=== PATIENT | female | born 1980 | race Caucasian/White ===

== ENCOUNTER 2019-12-10 15:49 | Outpatient (CLI) | payer OTHER, SELFPAY ==
--- NOTE | ~2019-12-10 | MM_ITS ---
EXAMINATION: MM screening david BI w drake HISTORY: Screening mammogram TECHNIQUE: Craniocaudal and mediolateral oblique 3-D tomosynthesis images were obtained and synthetic 2-D images were generated. CAD analysis was submitted and interpreted. COMPARISON: 09/27/2018 BREAST PARENCHYMAL COMPOSITION: FINDINGS: There is no evidence of suspicious mass, calcification, or architectural distortion to sugg est malignancy in either breast. There has been no suspicious interval change. IMPRESSION: 1. No mammographic evidence of malignancy. 2. Recommend routine screening mammography in one year. BI-RADS Category 1: Negative Reviewed, dictated and finalized at location A.
== END 2019-12-10 15:50 | disposition home or self-care (01) ==
PROVIDERS: PCP Family Medicine; Visit Provider Family Medicine
DX: Z12.31 Encounter for screening mammogram for malignant neoplasm of breast (principal)
CPT/HCPCS: 77063; 77067

== ENCOUNTER 2020-09-24 16:01 | Emergency (ER) | payer OTHER, SELFPAY ==
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
[2020-09-24 16:30] VITALS: BP 139/79; PULSE 84; RESP 18; TEMP 36.4; O2SAT 96
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
[2020-09-24] MEDS: ACETAMINOPHEN 500 MG TABLET 1000 MG PO (17:29)
[2020-09-24 18:44] VITALS: BP 128/88; PULSE 70; RESP 20; O2SAT 100
== END 2020-09-24 18:45 | disposition home or self-care (01) ==
PROVIDERS: Emergency Provider Emergency Medicine; PCP Family Medicine
DX: S39.012A Strain of muscle, fascia and tendon of lower back, initial encounter (principal); S16.1XXA Strain of muscle, fascia and tendon at neck level, initial encounter; E11.9 Type 2 diabetes mellitus without complications; Z79.84 Long term (current) use of oral hypoglycemic drugs; V49.40XA Driver injured in collision with unspecified motor vehicles in traffic accident, initial encounter
CPT/HCPCS: 72100; 72125; 99284; A9270

== ENCOUNTER 2020-11-29 14:55 | Outpatient (CLI) | payer OTHER, SELFPAY ==
--- NOTE | ~2020-11-29 | XR_ITS ---
EXAMINATION: XR chest 2V 11/29/2020 15:16 INDICATION: Encounter for general adult medical examination PROCEDURE: 2 view chest COMPARISON: No prior studies for comparison. FINDINGS: The lungs are clear. The cardiomediastinal silhouette is within normal limits. There are no pleural effusions. There is no pneumothorax suspected. IMPRESSION: 1: NO ACUTE CARDIOPULMONARY DISEASE. Reviewed, dictated and finalized at location B.
== END 2020-11-29 14:56 | disposition home or self-care (01) ==
LOC: ANHIMG 15:02
PROVIDERS: PCP Family Medicine; Visit Provider Family Medicine
DX: Z00.00 Encounter for general adult medical examination without abnormal findings (principal)
CPT/HCPCS: 71046

== ENCOUNTER 2021-02-22 17:49 | Outpatient (CLI) | payer OTHER, SELFPAY ==
--- NOTE | ~2021-02-22 | MM_ITS ---
EXAMINATION: MM screening david BI w drake HISTORY: Screening TECHNIQUE: Craniocaudal and mediolateral oblique 3-D tomosynthesis images were obtained and synthetic 2-D images were generated. CAD analysis was submitted and interpreted. COMPARISON: Comparison to multiple prior studies sequentially, with oldest reviewed study dated 09/27. BREAST PARENCHYMAL COMPOSITION: There are scattered areas of fibroglandular density. FINDINGS: There is no evidence of suspicious mass, calcification, or architectural distortion to sugg est malignancy in either breast. There has been no suspicious interval change. IMPRESSION: 1. No mammographic evidence of malignancy. 2. Recommend routine screening mammography in one year. BI-RADS Category 1: Negative Reviewed, dictated and finalized at location A.
== END 2021-02-22 17:50 | disposition home or self-care (01) ==
LOC: ANHIMG 17:50
PROVIDERS: PCP Family Medicine; Visit Provider Nurse Practitioner
DX: Z12.31 Encounter for screening mammogram for malignant neoplasm of breast (principal)
CPT/HCPCS: 77063; 77067

== ENCOUNTER 2021-04-14 12:38 | Outpatient (CLI) | payer OTHER, SELFPAY ==
--- NOTE | ~2021-04-14 | XR_ITS ---
XR shoulder RT min 2V DATE: 04/14/2021 13:12 INDICATION: Right shoulder joint pain, popping when lifting TECHNIQUE: 5 views COMPARISON: None FINDINGS: No fracture or dislocation, periosteal reaction or bone destruction or abnormal soft tissue calcification is evident. There is mild dextro scoliosis of the upper thoracic spine. IMPRESSION: No significant radiographic abnormality of the right shoulder Reviewed, dictated and finalized at location A.
== END 2021-04-14 12:39 | disposition home or self-care (01) ==
LOC: ANHIMG 12:45
DX: M25.511 Pain in right shoulder (principal)
CPT/HCPCS: 73030

== ENCOUNTER 2022-06-15 10:51 | Outpatient (CLI) | payer OTHER, SELFPAY ==
[2022-06-15 11:53] LABS: Anion Gap 6 mmol/L (8-16); Blood Urea Nitrogen 15 mg/dL (7-17); Calcium 8.7 mg/dL (8.4-10.2); Carbon Dioxide 26 mmol/L (22-30); Chloride 101 mmol/L (98-107); Estimated Glomerular Filt Rate > 60; Glucose 180 mg/dL (65-110); Potassium 4.2 mmol/L (3.4-5.0); Sodium 133 mmol/L (137-145)
== END 2022-06-15 10:52 | disposition home or self-care (01) ==
LOC: ANHSURGERY 10:52
PROVIDERS: Visit Provider Obstetrics & Gynecology Gynecology
DX: E11.9 Type 2 diabetes mellitus without complications (principal); Z01.818 Encounter for other preprocedural examination
CPT/HCPCS: 36415; 80048

== ENCOUNTER 2022-06-19 01:07 | Day surgery (SDC) | payer OTHER, SELFPAY ==
[2022-04-25 12:57] VITALS: BMI 44.4
--- NOTE | 2022-04-25 13:06 | PC.NURSE ---
Report to the Outpatient Waiting Room, entrance under the green pavilion located off [facility], at time 11:45AM on date 05/08/2022. Planned Procedure Time: 1:45PM. Time changes happen often and if your time is changed the preop area will call you the afternoon before. - You and your visitor will be asked to self-screen and do not enter if you have any COVID symptoms. - We encourage only one visitor and NO visitors under age 16 are allowed at this time. Your visitor will receive communication by the phone number that is given day of service. - The patient visitor is requested to social distance or may leave the building when not with patient due to restrictions. - A mask is required within the hospital. Patients may have clear liquids (water, carbonated beverages, clear teas, apple juice) until 3 hours prior to surgery (10:45AM) with a maximum of 20 ounces. - No food from midnight until time of surgery Take the following medications with a SIP of water the morning of surgery: N/A Medications to discontinue per physician N/A Date to take last dose N/A Please no make-up, nail yi, hairspray, perfume, deodorant, or body powder the day of surgery. No jewelry (including any body piercings) or valuables the day of surgery, leave them at home. Please take a shower or bath the night before, or the morning of, surgery with an antibacterial soap. Wear comfortable, loose fitting clothing. - Jewelry must be removed prior to entering the operating room. Rings and piercings that are not removed may be cut off. - The hospital will not accept responsibility for valuables. - Please leave all valuables, including medications, at home the day of surgery. If you are going home after surgery, a licensed electric screw driver operator must drive you home. - NO public transportation without another adult. - We recommend that an adult stay with you for 24 hours following discharge. - We also recommend that you do not drive, make important decision, drink alcoholic beverages, or take any drugs that were not prescribed by your health care provider for at least 24 hours after your discharge time. Follow any additional instructions given to you from your surgeon. If you or anyone in your household have experienced Covid symptoms in the past week, please notify your surgeon or the nurse liaison at the phone number below for possible testing. Telephone instructions given to PATIENT and asked if any additional questions and then verbalized understanding. Patient advised to call surgeon office or pre surgery nurse liaison [phone] if any additional questions.
--- NOTE | 2022-06-13 09:54 | PC.NURSE ---
Report to the Outpatient Waiting Room, entrance under the green pavilion located off [facility], at time _1245_ on date _06/19/22. Planned Procedure Time: __1445_. Time changes happen often and if your time is changed the preop area will call you the afternoon before. - You and your visitor will be asked to self-screen and do not enter if you have any COVID symptoms. - Only one visitor is requested with a max of two and NO children visitors are allowed at this time. - The patient visitor may be requested to leave or wait in car when not with patient due to distancing restrictions. - A mask is optional within the hospital. Patients may have clear liquids (water, carbonated beverages, clear teas, apple juice) until 3 hours prior to surgery with a maximum of 20 ounces. - No food from midnight until time of surgery - Infants may have breast milk until 4 hours before surgery, formula 6 hours prior to surgery. - Children will be allowed to drink immediately following surgery. If applicable, please bring a bottle or sippy cup to assist with drinking. Juice, water, soda, and popsicles are readily available. For infants on formula, please bring formula the day of surgery. Pacifiers are allowed. Take the following medications with a SIP of water the morning of surgery: ___NONE Medications to discontinue per physician NONE Date to take last dose Please no make-up, nail dominican, hairspray, perfume, deodorant, or body powder the day of surgery. No jewelry (including any body piercings) or valuables the day of surgery, leave them at home. Please take a shower or bath the night before, or the morning of, surgery with an antibacterial soap. Wear comfortable, loose fitting clothing. Children are encouraged to wear pajamas. - Jewelry must be removed prior to entering the operating room. Rings and piercings that are not removed may be cut off. - The hospital will not accept responsibility for valuables. - Please leave all valuables, including medications, at home the day of surgery. If you are going home after surgery, a licensed electric pile driver operator must drive you home. - NO public transportation without another adult if you receive anesthesia. - We recommend that an adult stay with you for 24 hours following discharge. - We also recommend that you do not drive, make important decision, drink alcoholic beverages, or take any drugs that were not prescribed by your health care provider for at least 24 hours after your discharge time. For Pediatric surgeries, we recommend two adults accompany the child home. Follow any additional instructions given to you from your surgeon. If you or anyone in your household have experienced Covid symptoms in the past week, please notify your surgeon or the nurse liaison at the phone number below for possible testing. Telephone instructions given to PATIENT_and asked if any additional questions and then verbalized understanding. Patient advised to call surgeon office or pre surgery nurse liaison [phone] if any additional questions.
--- NOTE | 2022-06-13 10:01 | PC.NURSE ---
MEDICATIONS AND HEALTH HISTORY REVIEWED AND UPDATED. NEW INSTRUCTIONS GIVEN.
--- NOTE | 2022-06-19 09:28 | WPDHPUPDATE1 ---
History and Physical Update Update Date/Time: 06/19/22 09:28 History and Physical has been reviewed, including an updated exam of the patient. There are NO changes in the patient's condition. Risks, benefits, and alternatives have been discussed and questions answered. Patient agrees to proceed with procedure.
--- NOTE | 2022-06-19 09:28 | PM.HPGS ---
History of Present Illness History of Present Illness Consent: Risks, benefits, and alternatives have been discussed and questions answered. Patient agrees to proceed with procedure. 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 The patient has been on Prometrium 400 mg for 12 days each month since her initial diagnosis in 2018. Patient had a follow-up biopsy that revealed benign findings. Patient had a recent change in her bleeding pattern starting in the late fall with the timing of her cycle being different, bleeding heavier at times, and intermittent bleeding between cycles. Patient underwent endometrial biopsy in the office which again revealed focal simple hyperplasia in the background of disordered proliferative endometrium with no atypia. It was recommended to proceed with D&C hysteroscopy to further evaluate the endometrium. Risks of infection, bleeding, perforation, and possible pathology were reviewed. Patient voiced understanding and agrees to proceed. Review of Systems Review of Systems: not repeated day of surgery; patient states no changes in status PMFSH Past Medical History Medical History (Updated 06/19/22 @ 09:35 by Charisma Sauer MD) Diabetes Elevated cholesterol Surgical History Surgical History (Updated 06/19/22 @ 09:34 by Charisma Sauer MD) History of appendectomy History of bilateral tubal ligation History of 2007 for twins at 32 weeks History of cholecystectomy History of hysteroscopy 2007 with simple hyperplasia without atypia History of tonsillectomy Hx of myringotomy multiple surgeries for chronic ear infection Social History Social History Smoking packs per day: 1.25 Smoking cigarettes per day: 25.0 Years smoked: 20 Smoking pack-years: 25.00 Smoking status: Heavy tobacco smoker Tobacco type: cigarettes Second hand tobacco smoke exposure: Yes Alcohol intake: never Substance use: never Substance use type: does not use Living arrangements: with family Gender identity (if verbalized by the patient): Female Spiritual care concerns: No Meds Home Medications and Allergies Home Medications Medication Instructions Recorded Confirmed Type ibuprofen 200 mg capsule (Motrin 600 mg PO Q6H PRN fever or pain #7 04/12/19 04/25/22 Rx IB) caps metformin 500 mg tablet 500 mg PO BID 04/12/19 04/25/22 History cyclobenzaprine 10 mg tablet 10 mg PO TID PRN muscle spasm #14 09/24/20 04/25/22 Rx tabs fluticasone propionate 50 1 spray intranasal BID 09/24/20 04/25/22 History mcg/actuation nasal spray,suspension progesterone micronized 200 mg 300 mg PO HS 09/24/20 04/25/22 History capsule gabapentin 300 mg capsule 300 mg PO BID 04/25/22 04/25/22 History pantoprazole 20 mg tablet,delayed 20 mg PO DAILY 04/25/22 04/25/22 History release semaglutide 0.25 mg or 0.5 mg (2 0.25 mg subcut WEEKLY 04/25/22 04/25/22 History mg/1.5 mL) subcutaneous pen injector (Ozempic) sertraline 50 mg tablet 50 mg PO HS 04/25/22 04/25/22 History simvastatin 20 mg tablet 20 mg PO HS 04/25/22 04/25/22 History Allergies Allergy/AdvReac Type Severity Reaction Status Date / Time dextromethorphan Allergy Severe THROAT Verified 04/25/22 12:51 SWELLING AND HIVES guaifenesin Allergy Severe THROAT Verified 09/24/20 16:34 SWELLING AND HIVES Exam Const: General: healthy appearing, alert and obese ( BMI of 45.9) Orientation/consciousness: patient oriented x3 Resp: Effort & Inspection: normal respiratory effort GI: GI Palp: Yes Soft to palpation, No Tenderness to palpation present (GI) and No Palpable mass present : External Female Exam: normal external appearance Speculum Exam - Vagina: normal appearance of the vagina and normal vaginal discharge Speculum Exam - Cervix:
--- NOTE | 2022-06-19 13:03 | WPDANESEPPF ---
Anes - Initial Pre Proc Eval Procedure: Operation Date: 06/19/22 14:45 Proposed Procedures p Hysteroscopy Dilation and Curettage - Charisma Sauer MD Date/Time: 06/19/22 13:03 Surgeon: Charisma Sauer MD Pre Op Diagnosis: Hyperplasia Patient Data Age: 41 Gender: F Height: 1.59 m Weight: 112 kg Allergies Allergy/AdvReac Type Severity Reaction Status Date / Time dextromethorphan Allergy Severe THROAT Verified 04/25/22 12:51 SWELLING AND HIVES guaifenesin Allergy Severe THROAT Verified 09/24/20 16:34 SWELLING AND HIVES Home Medications Medication Instructions Recorded Confirmed Type ibuprofen 200 mg capsule (Motrin 600 mg PO Q6H PRN fever or pain #7 04/12/19 04/25/22 Rx IB) caps metformin 500 mg tablet 500 mg PO BID 04/12/19 04/25/22 History cyclobenzaprine 10 mg tablet 10 mg PO TID PRN muscle spasm #14 09/24/20 04/25/22 Rx tabs fluticasone propionate 50 1 spray intranasal BID 09/24/20 04/25/22 History mcg/actuation nasal spray,suspension progesterone micronized 200 mg 300 mg PO HS 09/24/20 04/25/22 History capsule gabapentin 300 mg capsule 300 mg PO BID 04/25/22 04/25/22 History pantoprazole 20 mg tablet,delayed 20 mg PO DAILY 04/25/22 04/25/22 History release semaglutide 0.25 mg or 0.5 mg (2 0.25 mg subcut WEEKLY 04/25/22 04/25/22 History mg/1.5 mL) subcutaneous pen injector (Ozempic) sertraline 50 mg tablet 50 mg PO HS 04/25/22 04/25/22 History simvastatin 20 mg tablet 20 mg PO HS 04/25/22 04/25/22 History Patient hx anesthesia problems: none Family hx anesthesia problems: none Results Review: All pre-operative results and documents have been reviewed as part of the pre-operative evaluation. [facility] Past Medical History Medical History Diabetes Elevated cholesterol Surgical History Surgical History History of appendectomy History of bilateral tubal ligation History of 2007 for twins at 32 weeks History of cholecystectomy History of hysteroscopy 2007 with simple hyperplasia without atypia History of tonsillectomy Hx of myringotomy multiple surgeries for chronic ear infection Social History Social History Smoking packs per day: 1.25 Smoking cigarettes per day: 25.0 Years smoked: 20 Smoking pack-years: 25.00 Smoking status: Heavy tobacco smoker Tobacco type: cigarettes Second hand tobacco smoke exposure: Yes Alcohol intake: never Substance use: never Substance use type: does not use Living arrangements: with family Gender identity (if verbalized by the patient): Female Spiritual care concerns: No Anes - Eval Final PreProcedure Day of Procedure 06/19/22 13:03 Patient weight: morbidly obese Heart: regular rate and rhythm Lungs: clear to auscultation Airway: Mallampati scale class II Neurological: alert and oriented Last oral intake: >/= 8 hours ASA classification: III Emergent: no Anesthetic plan: proceed Anesthesia type and monitoring: general GIVS and standard monitoring Results Review: All pre-operative results and documents have been reviewed as part of the pre-operative evaluation. Informed Consent: The patient's anesthetic plan and its attendant risks and benefits were discussed with the patient/family/POA. Questions were solicited and answers provided to the satisfaction of the patient/family/POA.
[2022-06-19] MEDS: LACTATED RINGERS 1,000 ML 30 ML IV CONT (13:10)
[2022-06-19] MEDS: ACETAMINOPHEN 500 MG TABLET 1000 MG PO (13:14)
[2022-06-19 13:15] LABS: Glucose Point of Care 170 mg/dl (65-105)
[2022-06-19 13:35] VITALS: BP 141/71; PULSE 86; RESP 18; TEMP 36.3; O2SAT 98
[2022-06-19] MEDS: LIDOCAINE HCL 1% PF 30 ML VIAL 10 ML INFILTRATE (13:49)
--- NOTE | 2022-06-19 13:56 | W.PM.PROC2 ---
Procedure Note - Detailed Date of Procedure 06/19/22 Pre-op Diagnosis Endometrial Hyperplasia simple without atypia Post-op Diagnosis Same Procedure Performed D&C hysteroscopy Surgeon Charisma Sauer MD Anesthesia MAC and Local Findings the uterus sounds to 12cm and has a generally shaggy appearance with no discrete lesions Description of Procedure The patient was taken to the operating room and placed under anesthesia in the dorsal lithotomy position. The bivalve speculum was placed in the vagina and the cervix grasped on the anterior lip with a tenaculum. The cervix is injected in each quadrant with 1% lidocaine. The uterus is sounded to 12cm. The Aveta hysteroscope was placed with the above-stated findings. The hysteroscope was removed. The sharp curette is used to curette the endometrium until a good uterine cry was noted in all areas. All instruments are removed. Sponge, needle, and instrument counts are correct per the OR staff. Patient was awakened from anesthesia and taken to recovery in stable condition. Estimated Blood Loss 5 Drains No Packing No Pathology Yes ( Endometrial curettings) Complications No immediate complications Condition Stable Disposition PACU
[2022-06-19 13:57] VITALS: BP 148/83; PULSE 96; RESP 16; O2SAT 98
[2022-06-19 14:05] VITALS: O2SAT 98
[2022-06-19 14:08] LABS: Glucose Point of Care 151 mg/dl (65-105)
[2022-06-19 14:25] VITALS: BP 132/80; PULSE 77; RESP 16; O2SAT 95
[2022-06-19 14:55] VITALS: BP 101/52; PULSE 69; RESP 16; O2SAT 95
[2022-06-19 15:27] VITALS: BP 122/62; PULSE 70; RESP 16
== END 2022-06-19 16:00 | disposition home or self-care (01) ==
PROVIDERS: PCP Physician Assistant; Visit Provider Obstetrics & Gynecology Gynecology
PROC: 0U5B8ZZ Destruction of Endometrium, Via Natural or Artificial Opening Endoscopic (ICD-10-PCS; CPT 58563; principal; 2022-06-19 14:45)
DX: N85.01 Benign endometrial hyperplasia (principal); E11.9 Type 2 diabetes mellitus without complications; E78.00 Pure hypercholesterolemia, unspecified; F17.210 Nicotine dependence, cigarettes, uncomplicated; Z79.84 Long term (current) use of oral hypoglycemic drugs; Z79.899 Other long term (current) drug therapy
CPT/HCPCS: 58558; 82948; 88305; A9270; J2001; J2250; J2704; J3010; J7120

== ENCOUNTER 2023-07-13 13:52 | Outpatient (CLI) | payer OTHER, SELFPAY ==
--- NOTE | ~2023-07-13 | MM_ITS ---
EXAMINATION: MM screening david BI w drake HISTORY: Screening TECHNIQUE: Craniocaudal and mediolateral oblique 3-D tomosynthesis images were obtained and synthetic 2-D images were generated. CAD analysis was submitted and interpreted. COMPARISON: Comparison to multiple prior studies sequentially, with oldest reviewed study dated 09/27. BREAST PARENCHYMAL COMPOSITION: There are scattered areas of fibroglandular density. FINDINGS: There is no evidence of suspicious mass, calcification, or architectural distortion to sugg est malignancy in either breast. There has been no suspicious interval change. IMPRESSION: 1. No mammographic evidence of malignancy. 2. Recommend routine screening mammography in one year. BI-RADS Category 1: Negative Reviewed, dictated and finalized at location A. [facility]
== END 2023-07-13 13:53 | disposition home or self-care (01) ==
LOC: ANHIMG 13:55
PROVIDERS: PCP Physician Assistant; Visit Provider Obstetrics & Gynecology Gynecology
DX: Z12.31 Encounter for screening mammogram for malignant neoplasm of breast (principal)
CPT/HCPCS: 77063; 77067

== ENCOUNTER 2024-05-15 09:34 | Outpatient (CLI) | payer OTHER, SELFPAY | END 2024-05-15 09:35 | disposition home or self-care (01) | PROVIDERS: PCP Physician Assistant; Visit Provider Physician Assistant | DX: H90.72 Mixed conductive and sensorineural hearing loss, unilateral, left ear, with unrestricted hearing on the contralateral side (principal) | CPT/HCPCS: 92557; 92567 ==

== ENCOUNTER 2024-07-02 09:49 | Outpatient (CLI) | payer OTHER, SELFPAY ==
--- NOTE | 2024-07-02 12:00 | NEURO_ITS ---
Impression: # Diabetic,Complains of numbness of hands. ? # Bilateral Carpal Tunnel Syndrome, sensory more than motor. ? # Left ulnar neuropathy across the elbow. ? # Ulnar to median cross innervation noted. ? # Normal needle/EMG exam. Nerve Conduction Studies Anti Sensory Summary Table ?Stim Site NR Peak (ms) P-T Amp (?V) Site1 Site2 Delta-P (ms) Dist (cm) Darrell (m/s) Left Median Anti Sensory (2-3nd Digit) Wrist ? 5.6 38.6 Wrist 2-3nd Digit 5.6 14.0 25 Wrist ? 6.1 6.5 Wrist 2-3nd Digit 5.6 14.0 25 Right Median Anti Sensory (2-3nd Digit) Wrist ? 3.6 13.6 Wrist 2-3nd Digit 3.6 14.0 39 Wrist ? 4.7 24.5 Wrist 2-3nd Digit 3.6 14.0 39 Left Radial Anti Sensory (Base 1st Digit) Wrist ? 1.7 17.7 Wrist Base 1st Digit 1.7 0.0 Right Radial Anti Sensory (Base 1st Digit) Wrist ? 1.8 21.2 Wrist Base 1st Digit 1.8 0.0 Left Ulnar Anti Sensory (5th Digit) Wrist ? 4.1 23.1 Wrist 5th Digit 4.1 14.0 34 Right Ulnar Anti Sensory (5th Digit) Wrist ? 2.4 41.4 Wrist 5th Digit 2.4 14.0 58 Motor Summary Table ?Stim Site NR Onset (ms) O-P Amp (mV) Site1 Site2 Delta-0 (ms) Dist (cm) Darrell (m/s) Left Median Motor (Abd Poll Brev) Wrist ? 4.1 1.3 Elbow Wrist 4.9 29.0 59 Elbow ? 9.0 3.3 Right Median Motor (Abd Poll Brev) Wrist ? 3.9 0.9 Elbow Wrist 4.2 25.0 60 Elbow ? 8.1 3.1 Left Ulnar Motor (Abd Dig Minimi) Wrist ? 2.5 6.5 A Elbow Wrist 7.0 31.0 44 A Elbow ? 9.5 2.8 B Elbow Wrist 4.2 22.0 52 B Elbow ? 6.7 3.3 Right Ulnar Motor (Abd Dig Minimi) Wrist ? 2.6 5.1 A Elbow Wrist 4.7 27.0 57 A Elbow ? 7.3 5.1 F Wave Studies ?NR F-Lat (ms) L-R F-Lat (ms) Left Median (Mrkrs) (Abd Poll Brev) ? 27.45 0.23 Right Median (Mrkrs) (Abd Poll Brev) ? 27.68 0.23 Left Ulnar (Mrkrs) (Abd Dig Min) ? 28.81 2.59 Right Ulnar (Mrkrs) (Abd Dig Min) ? 26.22 2.59 EMG ?Side Muscle Nerve Root Ins Act Fibs Amp Dur Recrt Comment Right 1stDorInt Ulnar C8-T1 Nml Nml Nml Nml Nml Right Ext Indicis Radial (Post Int) C7-8 Nml Nml Nml Nml Nml Right Ext Digitorum Radial (Post Int) C7-8 Nml Nml Nml Nml Nml Right BrachioRad Radial C5-6 Nml Nml Nml Nml Nml Right PronatorTeres Median C6-7 Nml Nml Nml Nml Nml Right Abd Poll Brev Median C8-T1 Nml Nml Nml Nml Nml Right ABD Dig Min Ulnar C8-T1 Nml Nml Nml Nml Nml Left 1stDorInt Ulnar C8-T1 Nml Nml Nml Nml Nml Left Ext Indicis Radial (Post Int) C7-8 Nml Nml Nml Nml Nml Left Ext Digitorum Radial (Post Int) C7-8 Nml Nml Nml Nml Nml Left BrachioRad Radial C5-6 Nml Nml Nml Nml Nml Left PronatorTeres Median C6-7 Nml Nml Nml Nml Nml Left Abd Poll Brev Median C8-T1 Nml Nml Nml Nml Nml Left ABD Dig Min Ulnar C8-T1 Nml Nml Nml Nml Nml MTDD
--- OUTSIDE RECORDS SUMMARY | 2024-07-03 22:51 | XMS_ITS | CONTINUITY OF CARE DOCUMENT ---
Author Name oneyda call Address Unknown Organization [facility] Address [address] [place] [address] Phone [phone] Care Team Providers Care Conservation Assistant Name Role Phone oneyda call Unavailable Unavailable INSURANCE PROVIDERS Payer name Policy type / Coverage type Tim red republican [employer] Medicaid 0 [id number]
--- OUTSIDE RECORDS SUMMARY | 2024-07-03 22:52 | XMS_ITS | Data Portability ---
Author Organization [facility] Address [address] [place] [address] Care Team Providers Care Medical Lab Tech Instructor Name Role Phone ALIDA PINEDA Conduit Helper [phone] LILLIE WELLS Primary Care Provider Assessment Encounter Date Assessment Date Assessment LastModified by Organization Details LastModified Time 04/18/2023 04/18/2023 Sections of the HPI, exam and assessment completed by RALPH Fish student and have been reviewed by me. I agree with the exam findings, assessment and plan except where specifically documented or amended. -Lillie Wells, [facility], BELLA [email or web address] Not available 04/18/2023 12:09:22 Plan of Treatment Reminders Order Date Submit Date Provider Last Modified By Organization Details Last Modified Time Details Appointments None recorded. Lab HbA1c (hemoglobin A1c), blood 2022 023 [email or web address] In-Office Order, Internal Use Only DO Not Attach Compendium DO Not Attach Compendium, Do Not Delete/merge, [id number] 12:36:17 CMP, serum or plasma 2022 023 JONES [facility], [address], [place], [address], 3 22:07:36 lipid panel, serum 2022 023 JONES [facility], [address], [place], [address], 3 22:07:36 CBC w/ auto diff 2022 023 JONES [facility], [address], [place], [address], 3 22:07:37 TSH + free T4, serum 2022 023 JONES [facility], [address], [place], [address], 3 09:16:14 microalbumi n/creatinin e, mass ratio, urine 2022 023 JONES GOULD, [address], [address], [place], [address], 3 09:16:14 pathology study - SKIN TAGS TO L SIDE OF NECK 2023 024 JONES GOULD, [address], [address], [place], [address], 4 17:15:06 HbA1c (hemoglobin A1c), blood 2023 024 ray In-Office Order, Internal Use Only DO Not Attach Compendium DO Not Attach Compendium, Do Not Delete/merge, [id number] 4 13:03:36 CBC w/ auto diff 2023 024 JONES GOULD, [address], [address], [place], [id number], 4 20:10:35 iron + total iron-bindin g capacity (TIBC), serum 2023 024 JONES GOULD, [address], [address], [place], [id number], 4 11:13:54 ferritin, serum or plasma 2023 024 [address], [address], [place], [address], 4 11:13:54 pathology study - SKIN TAGS TO L NECK 2023 024 JONES [facility], [address], [address], [place], [address], 4 12:13:26 HbA1c (hemoglobin A1c), blood 2023 024 [email or web address] In-Office Order, Internal Use Only DO Not Attach Compendium DO Not Attach Compendium, Do Not Delete/merge, [id number] 4 16:50:00 iron + total iron-bindin g capacity (TIBC), serum 2023 024 [email or web address] [facility], [address], [address], [place], [address], 4 08:13:44 ferritin, serum or plasma 2023 024 [email or web address] [facility], [address], [address], [place], [address], 4 08:13:44 CBC w/ auto diff 2023 024 [email or web address] [facility], [address], [address], [place], [address], 4 08:13:44 Referral physical therapist referral 2022 023 [email or web address] [facility], [address], [place], [address], 3 11:16:[address] referral 2022 023 [email or web address] Juarez MD (Dermatology) , [address], [address], [place], [address], 4 13:31:35 hearing screening referral 2023 024 [facility] (Audiology), [address] [facility] [address], [address], 4 14:21:50 Procedures None recorded. Surgeries None recorded. Imaging XR, shoulder, 2 or more view 2022 023 [facility], [address] [place], [address], 3 10:05:16 XR, lumbosacral spine, 2 or 3 view [address] (Imaging), [address] [place], [address], 4 07:50:55 electromyog matias + nerve conduction study - BILAT UPPER EXT [address] (Cardiology & Emg), [address] [facility] [address], [place], [address], 4 08:16:59 Medication Orders fluticasone propionate 50 mcg/actuati on nasal spray,suspe nsion [address] [facility], [address] [place] [address], [address], [place], [address], 3 13:11:13 sertraline 100 mg tablet 2022 023 [facility], [address] [facility], [address], [place], [address], 3 12:36:15 simvastatin 20 mg tablet [address] [facility], [address] [place] [address], [address], [place], [address], 3 13:11:14 OneTouch Verio test strips [address] [facility], [address], [address], [place], [address], 3 13:11:14 gabapentin 300 mg capsule 2023 024 [facility], [address], [address], [place], [address], 4 17:03:54 cyclobenzap rine 10 mg tablet [address] [facility], [address] [facility], [place], [address], 4 17:02:24 triamcinolo ne acetonide 0.1 % topical ointment [address] [facility], [address], [place], [address], 4 16:59:19 Patient TargetsNo targets recorded. 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 C yst of scalp Referring Physician: Family Sarah Kee, Encounter Date: 04/18/2023 Hearing Screening Referral f or Decreased hearing Referring Physician: Family Sarah Kee, Encounter Date: 05/01/2024 Results Created Date Observation Date Name Description Value Unit Range Abnormal Flag Note LastModifiedBy Organization Detail LastModifiedTime 04/18/20 23 04/18/2023 LIPID PANEL WITH LDL/H DL RATIO cholesterol, total 127 mg/dL 100-19 9 Not Available [facility] Department [address] [place], [address], 04/18/2023 22:07:36 04/18/20 23 04/18/2023 LIPID PANEL WITH LDL/H DL RATIO triglyceride s 231 mg/dL 0-149 above high normal Not Available [facility] Department [address] [place], [address], 04/18/2023 22:07:36 04/18/20 23 04/18/2023 LIPID PANEL WITH LDL/H DL RATIO HDL cholesterol 33 mg/dL 40-999 below low normal Not Available [facility] Department [address] [place], [address], 04/18/2023 22:07:36 04/18/20 23 04/18/2023 LIPID PANEL WITH LDL/H DL RATIO VLDL cholesterol cee 46 mg/dL 5-40 above high normal Not Available [facility] Department [address] [place], [address], 04/18/2023 22:07:36 04/18/20 23 04/18/2023 LIPID PANEL WITH LDL/H DL RATIO LDL chol calc (nih) 84 mg/dL 0-99 Not Available [facility] Department [address] [place], [address], 04/18/2023 22:07:36 04/18/20 23 04/18/2023 LIPID PANEL WITH LDL/H DL RATIO LDL/HDL ratio 2.5 0-3.2 Not Available [facility] Department [address] [place], [address], 04/18/2023 22:07:36 04/18/20 23 04/18/2023 COMP. METAB OLIC PANEL (14) glucose 122 mg/dL 70-99 above high normal Not Available [facility] Department [address] [place], [address], 04/18/2023 22:07:36 04/18/20 23 04/18/2023 COMP. METAB OLIC PANEL (14) BUN 18 mg/dL 6-24 Not Available [facility] Department [address] [place] [address], [address], 04/18/2023 22:07:36 04/18/20 23 04/18/2023 COMP. METAB OLIC PANEL (14) creatinine 0.79 mg/dL 0.76-1 .27 Not Available [facility] Department [address] [place] [address], [address], 04/18/2023 22:07:36 04/18/20 23 04/18/2023 COMP. METAB OLIC PANEL (14) eGFR 95 >=60 Units for eGFR value s are mL/mi n/1.7 3 The eGFR Calcu latio n has not been valid ated for patie nts under the age of 18. If test resul ts are displ ayed for a patie nt under the age of 18, disre sarah that value . Not Available [facility] Department [address] [place] [address], [address], 04/18/2023 22:07:36 04/18/20 23 04/18/2023 COMP. METAB OLIC PANEL (14) BUN/creatini ne ratio 22 9-23 Not Available [facility] Department [address] [place] [address], [address], 04/18/2023 22:07:36 04/18/20 23 04/18/2023 COMP. METAB OLIC PANEL (14) sodium 140 mmol/ L 134-14 4 Not Available [facility] Department [address] [place], [address], 04/18/2023 22:07:36 04/18/20 23 04/18/2023 COMP. METAB OLIC PANEL (14) potassium 4.5 mmol/ L 3.5-5. 2 Not Available [facility] Department [address] [place] [address], [address], 04/18/2023 22:07:36 04/18/20 23 04/18/2023 COMP. METAB OLIC PANEL (14) chloride 106 mmol/ L 96-106 Not Available [facility] Department [address] [place], [address], 04/18/2023 22:07:36 04/18/20 23 04/18/2023 COMP. METAB OLIC PANEL (14) carbon dioxide, total 22 mmol/ L 20-29 Not Available [facility] Department [address] [place] [address], [address], 04/18/2023 22:07:36 04/18/20 23 04/18/2023 COMP. METAB OLIC PANEL (14) calcium 9.9 mg/dL 8.7-10 .2 Not Available [facility] Department [address] [place] [address], [address], 04/18/2023 22:07:36 04/18/20 23 04/18/2023 COMP. METAB OLIC PANEL (14) protein, total 6.8 g/dL 6.0-8. 5 Not Available [facility] Department [address] [place], [address], 04/18/2023 22:07:36 04/18/20 23 04/18/2023 COMP. METAB OLIC PANEL (14) albumin 4.4 g/dL 3.9-4. 9 Not Available [facility] Department [address] [place] [address], [address], 04/18/2023 22:07:36 04/18/20 23 04/18/2023 COMP. METAB OLIC PANEL (14) globulin, total 2.4 g/dL 1.5-4. 5 Not Available [facility] Department [address] [place] [address], [address], 04/18/2023 22:07:36 04/18/20 23 04/18/2023 COMP. METAB OLIC PANEL (14) A/G ratio 1.8 1.2-2. 2 Not Available [facility] Department [address] [place], [address], 04/18/2023 22:07:36 04/18/20 23 04/18/2023 COMP. METAB OLIC PANEL (14) bilirubin, total 0.3 mg/dL 0.0-1. 2 Not Available [facility] Department [address] [place], [address], 04/18/2023 22:07:36 04/18/20 23 04/18/2023 COMP. METAB OLIC PANEL (14) alkaline phosphatase 59 IU/L 44-121 Not Available [facility] Department [address] [place], [address], 04/18/2023 22:07:36 04/18/20 23 04/18/2023 COMP. METAB OLIC PANEL (14) AST (SGOT) 11 IU/L 0-40 Not Available [facility] Department [address] [place], [address], 04/18/2023 22:07:36 04/18/20 23 04/18/2023 COMP. METAB OLIC PANEL (14) ALT (SGPT) 11 IU/L 0-32 Not Available [facility] Department [address] [place], [address], 04/18/2023 22:07:36 04/18/20 23 04/18/2023 CBC WITH DIFFE RENTI AL/PL ATELE T WBC 12.6 x10e3 /uL 3.4-10 .8 above high normal Not Available [facility] Department [address] [place], [address], 04/18/2023 22:07:37 04/18/20 23 04/18/2023 CBC WITH DIFFE RENTI AL/PL ATELE T RBC 5.03 x10e6 /uL 3.77-5 .28 Not Available [facility] Department [address] [place], [address], 04/18/2023 22:07:37 04/18/20 23 04/18/2023 CBC WITH DIFFE RENTI AL/PL ATELE T hemoglobin 10.2 g/dL 11.1-1 5.9 below low normal Not Available [facility] Department [address] [place], [address], 04/18/2023 22:07:37 04/18/20 23 04/18/2023 CBC WITH DIFFE RENTI AL/PL ATELE T hematocrit 36.6 % 34.0-4 6.6 Not Available [facility] Department [address] [place], [address], 04/18/2023 22:07:37 04/18/20 23 04/18/2023 CBC WITH DIFFE RENTI AL/PL ATELE T MCV 73 fL 79-97 below low normal Not Available [facility] Department [address] [place], [address], 04/18/2023 22:07:37 04/18/20 23 04/18/2023 CBC WITH DIFFE RENTI AL/PL ATELE T MCH 20.3 pg 26.6-3 3.0 below low normal Not Available [facility] Department [address] [place], [address], 04/18/2023 22:07:37 04/18/20 23 04/18/2023 CBC WITH DIFFE RENTI AL/PL ATELE T MCHC 27.9 g/dL 31.5-3 5.7 below low normal Not Available [facility] Department [address] [place], [address], 04/18/2023 22:07:37 04/18/20 23 04/18/2023 CBC WITH DIFFE RENTI AL/PL ATELE T RDW 20.0 % 11.5-1 4.5 above high normal Not Available [facility] Department [address] [place], [address], 04/18/2023 22:07:37 04/18/20 23 04/18/2023 CBC WITH DIFFE RENTI AL/PL ATELE T platelets 357 x10e3 /uL 150-45 0 Not Available [facility] Department [address] [place], [address], 04/18/2023 22:07:37 04/18/20 23 04/18/2023 CBC WITH DIFFE RENTI AL/PL ATELE T neutrophils 62 % notest b. Not Available [facility] Department [address] [place], [address], 04/18/2023 22:07:37 04/18/20 23 04/18/2023 CBC WITH DIFFE RENTI AL/PL ATELE T lymphs 30 % notest b. Not Available [facility] Department [address] [place] [address], [address], 04/18/2023 22:07:37 04/18/20 23 04/18/2023 CBC WITH DIFFE RENTI AL/PL ATELE T monocytes 6 % notest b. Not Available [facility] Department [address] [place], [address], 04/18/2023 22:07:37 04/18/20 23 04/18/2023 CBC WITH DIFFE RENTI AL/PL ATELE T eos 1 % notest b. Not Available [facility] Department [address] [place], [address], 04/18/2023 22:07:37 04/18/20 23 04/18/2023 CBC WITH DIFFE RENTI AL/PL ATELE T basos 1 % notest b. Not Available [facility] Department [address] [place], [address], 04/18/2023 22:07:37 04/18/20 23 04/18/2023 CBC WITH DIFFE RENTI AL/PL ATELE T neutrophils (absolute) 7.8 x10e3 /uL 1.4-7. 0 above high normal Not Available [facility] Department [address] [place], [address], 04/18/2023 22:07:37 04/18/20 23 04/18/2023 CBC WITH DIFFE RENTI AL/PL ATELE T lymphs (absolute) 3.7 x10e3 /uL 0.7-3. 1 above high normal Not Available [facility] Department [address] [place], [address], 04/18/2023 22:07:37 04/18/20 23 04/18/2023 CBC WITH DIFFE RENTI AL/PL ATELE T monocytes(ab solute) 0.8 x10e3 /uL 0.1-0. 9 Not Available [facility] Department [address] [place], [address], 04/18/2023 22:07:37 04/18/20 23 04/18/2023 CBC WITH DIFFE RENTI AL/PL ATELE T eos (absolute) 0.1 x10e3 /uL 0.0-0. 4 Not Available [facility] Department [address] [place], [address], 04/18/2023 22:07:37 04/18/20 23 04/18/2023 CBC WITH DIFFE RENTI AL/PL ATELE T baso (absolute) 0.1 x10e3 /uL 0.0-0. 2 Not Available [facility] Department [address] [place], [address], 04/18/2023 22:07:37 04/18/20 23 04/18/2023 CBC WITH DIFFE RENTI AL/PL ATELE T immature granulocytes 0.3 % notest b. Not Available [facility] Department [address] [place], [address], 04/18/2023 22:07:37 04/18/20 23 04/18/2023 CBC WITH DIFFE RENTI AL/PL ATELE T immature grans (abs) 0.0 x10e3 /uL 0.0-0. 1 Not Available [facility] Department [address], [place], [address], 04/18/2023 22:07:37 04/18/20 23 04/18/2023 CBC WITH DIFFE RENTI AL/PL ATELE T NRBC 0 % 0-0 Not Available [facility] Department [address], [place], [address], 04/18/2023 22:07:37 04/18/20 23 04/19/2023 ALBUM IN/CR EAT RATIO , RANDO M UR creatinine, urine 91.3 mg/dL notest ab. Not Available [facility] ([facility]) [address] [place], [address], 04/19/2023 09:16:14 04/18/20 23 04/19/2023 ALBUM IN/CR EAT RATIO , RANDO M UR albumin, urine 11.3 ug/mL notest ab. Not Available [facility] ([facility]) [address] [place], [address], 04/19/2023 09:16:14 04/18/2004/19/2023 ALBUM IN/CR EAT RATIO , RANDO M UR alb/creat ratio 12 mg/g_ creat 0-29 Fawn l: 0 - 29 Moder ately incre ased: 30 - 300 Sever hiral incre ased: >300 Not Available [facility] ([facility]) [address] [facility], [place], [address], 04/19/2023 09:16:14 04/18/20 23 04/19/2023 TSH+F REE T4 TSH 1.380 uIU/m L 0.450- 4.500 Not Available [facility] ([facility]) [address] [place], [address], 04/19/2023 09:16:14 04/18/20 23 04/19/2023 TSH+F REE T4 T4,free(dire ct) 0.83 NG/dL 0.82-1 .77 Not Available [facility] ([facility]) [address] [facility], [place], [address], 04/19/2023 09:16:14 04/18/20 23 04/18/2023 SLIDE REVIE W slide review Commen t Plate let Morph ology Comme nt Fawn l N RBC Morph ology Comme nt ABNOR MAL FAWN L A Hypoc hroma tima 2+ NOT ESTB. N Poiki locyt osis OCCAS IONAL NOT ESTB. N Aniso cytos is 1+ NOT ESTB. N Micro cytos is 1+ NOT ESTB. N Ovalo cytes OCCAS IONAL NOT ESTB. N Not Available [facility] Department [address] [place], [address], 04/18/2023 22:07:35 04/18/20 23 04/18/2023 HbA1c (hemo globi n A1c), blood HbA1c 6.2 Not Available In-Office Order Internal Use Only DO Not Attach Compendium DO Not Attach Compendium, Do Not Delete/merge, [id number] 04/18/2023 11:23:30 07/20/19 24 07/21/2023 CBC WITH DIFFE RENTI AL/PL ATELE T WBC 14.1* x10e3 /uL 3.4-10 .8 above high normal Not Available [facility] Department [address] [place], [address], 07/21/2023 03:37:21 07/20/19 24 07/21/2023 CBC WITH DIFFE RENTI AL/PL ATELE T RBC 5.45* x10e6 /uL 3.77-5 .28 above high normal Not Available [facility] Department [address] [place], [address], 07/21/2023 03:37:21 07/20/19 24 07/21/2023 CBC WITH DIFFE RENTI AL/PL ATELE T hemoglobin 11.1* g/dL 11.1-1 5.9 Not Available [facility] Department [address] [place], [address], 07/21/2023 03:37:21 07/20/19 24 07/21/2023 CBC WITH DIFFE RENTI AL/PL ATELE T hematocrit 39.0* % 34.0-4 6.6 Not Available [facility] Department [address] [place], [address], 07/21/2023 03:37:21 07/20/19 24 07/21/2023 CBC WITH DIFFE RENTI AL/PL ATELE T MCV 72* fL 79-97 below low normal Not Available [facility] Department [address] [place], [address], 07/21/2023 03:37:21 07/20/19 24 07/21/2023 CBC WITH DIFFE RENTI AL/PL ATELE T MCH 20.4* pg 26.6-3 3.0 below low normal Not Available [facility] Department [address] [place], [address], 07/21/2023 03:37:21 07/20/19 24 07/21/2023 CBC WITH DIFFE RENTI AL/PL ATELE T MCHC 28.5* g/dL 31.5-3 5.7 below low normal Not Available [facility] Department [address] [place], [address], 07/21/2023 03:37:21 07/20/1907/21/2023 CBC WITH DIFFE RENTI AL/PL ATELE T RDW 19.7* % 11.5-1 4.5 above high normal Not Available [facility] Department [address] [place], [address], 07/21/2023 03:37:21 07/20/19 24 07/21/2023 CBC WITH DIFFE RENTI AL/PL ATELE T platelets 336* x10e3 /uL 150-45 0 Not Available [facility] Department [address] [place], [address], 07/21/2023 03:37:21 07/20/19 24 07/21/2023 CBC WITH DIFFE RENTI AL/PL ATELE T neutrophils 64* % notest b. Not Available [facility] Department [address] [place], [address], 07/21/2023 03:37:21 07/20/19 24 07/21/2023 CBC WITH DIFFE RENTI AL/PL ATELE T lymphs 28* % notest b. Not Available [facility] Department [address] [place], [address], 07/21/2023 03:37:21 07/20/19 24 07/21/2023 CBC WITH DIFFE RENTI AL/PL ATELE T monocytes 6* % notest b. Not Available [facility] Department [address] [place], [address], 07/21/2023 03:37:21 07/20/19 24 07/21/2023 CBC WITH DIFFE RENTI AL/PL ATELE T eos 1* % notest b. Not Available [facility] Department [address] [place], [address], 07/21/2023 03:37:21 07/20/19 24 07/21/2023 CBC WITH DIFFE RENTI AL/PL ATELE T basos 1* % notest b. Not Available [facility] Department [address] [place], [address], 07/21/2023 03:37:21 07/20/19 24 07/21/2023 CBC WITH DIFFE RENTI AL/PL ATELE T neutrophils (absolute) 9.0* x10e3 /uL 1.4-7. 0 above high normal Not Available [facility] Department [address] [place], [address], 07/21/2023 03:37:21 07/20/19 24 07/21/2023 CBC WITH DIFFE RENTI AL/PL ATELE T lymphs (absolute) 4.0* x10e3 /uL 0.7-3. 1 above high normal Not Available [facility] Department [address] [place], [address], 07/21/2023 03:37:21 07/20/19 24 07/21/2023 CBC WITH DIFFE RENTI AL/PL ATELE T monocytes(ab solute) 0.9* x10e3 /uL 0.1-0. 9 Not Available [facility] Department [address] [place], [address], 07/21/2023 03:37:21 07/20/19 24 07/21/2023 CBC WITH DIFFE RENTI AL/PL ATELE T eos (absolute) 0.2* x10e3 /uL 0.0-0. 4 Not Available [facility] Department [address] [place], [address], 07/21/2023 03:37:21 07/20/19 24 07/21/2023 CBC WITH DIFFE RENTI AL/PL ATELE T baso (absolute) 0.1* x10e3 /uL 0.0-0. 2 Not Available [facility] Department [address] [place], [address], 07/21/2023 03:37:21 07/20/19 24 07/21/2023 CBC WITH DIFFE RENTI AL/PL ATELE T immature granulocytes 0.4* % notest b. Not Available [facility] Department [address] [place], [address], 07/21/2023 03:37:21 07/20/19 24 07/21/2023 CBC WITH DIFFE RENTI AL/PL ATELE T immature grans (abs) 0.1* x10e3 /uL 0.0-0. 1 Not Available [facility] Department [address] [place], [address], 07/21/2023 03:37:21 07/20/19 24 07/21/2023 CBC WITH DIFFE RENTI AL/PL ATELE T NRBC 0* % 0-0 Not Available [facility] Department [address], [place], [address], 07/21/2023 03:37:21 07/20/19 24 07/21/2023 IRON AND TIBC iron bind.cap.(TI BC) 418 ug/dL 250-45 0 Not Available [facility] ([facility]) [address] [place], [address], 07/21/2023 11:13:54 07/20/19 24 07/21/2023 IRON AND TIBC UIBC 400 ug/dL 131-42 5 Not Available [facility] ([facility]) [address] [place], [address], 07/21/2023 11:13:54 07/20/19 24 07/21/2023 IRON AND TIBC iron 18 ug/dL 27-159 below low normal Not Available [facility] ([facility]) [address] [place], [address], 07/21/2023 11:13:54 07/20/19 24 07/21/2023 IRON AND TIBC iron saturation 4 % 15-55 alert low Not Available [facility] ([facility]) [address] [place], [address], 07/21/2023 11:13:54 07/20/19 24 07/21/2023 IRAIDA TIN ferritin 5 NG/mL 15-150 below low normal Not Available [facility] ([facility]) [address] [place], [address], 07/21/2023 11:13:54 07/20/19 24 07/26/2023 PATHO LOGY REPOR T . Commen t Mater ial submi tted: . neck - LEFT SIDE OF NECK SKIN TAGS. Modif iers: left Not Available [facility] ([facility]) [address] [place], [address], 07/26/2023 17:15:06 07/20/19 24 07/26/2023 PATHO LOGY REPOR T . Commen t Clini sean provi ded ICD-1 0: R71.8 L91.8 Not Available [facility] ([facility]) [address] [facility], [place], [address], 07/26/2023 17:15:06 07/20/19 24 07/26/2023 PATHO LOGY REPOR T . Commen t Clini cee histo ry: . SKIN TAGS TO LEFT SIDE OF NECK Not Available [facility] ([facility]) [address] [place], [address], 07/26/2023 17:15:06 07/20/19 24 07/26/2023 PATHO LOGY REPOR T . Commen t Diagn osis: LEFT SIDE OF NECK: ACROC HORDO NS. DOK 07/26 1646 Local Not Available [facility] ([facility]) [address] [place], [address], 07/26/2023 17:15:06 07/20/19 24 07/26/2023 PATHO LOGY REPOR T . Commen t Elect veronica crouch d: . Oh zavala MD, Esperanza topat holog ist Not Available [facility] ([facility]) [address] [place], [address], 07/26/2023 17:15:06 07/20/19 24 07/26/2023 PATHO LOGY REPOR T . Commen t Gross descr iptio n: . 1 Conta iner, forma [place]-f illed , label ed with patie nt ident ifica tion. LEFT SIDE OF NECK SKIN TAGS: RECEI MAHENDRA ARE 2 FRAGM ENT(S ) OF WRINK LED POLYP OID ACOSTA SKIN TISSU E MEASU RING 0.5 X 0.3 X 0.3 CM. THE SURGI CEE BARB N IS INKED BLUE. THE LARGE R SPECI MEN IS BISEC DAMASO AND SUBMI TTED IN CASSE TTE(S ) A1. JAIME/K YE 07/23 0649 Local Not Available [facility] ([facility]) [address] [facility], [place], [address], 07/26/2023 17:15:06 07/20/19 24 07/26/2023 PATHO LOGY REPOR T . Commen t Patho logis t provi ded ICD-1 0: L91.9 Not Available [facility] ([facility]) [address] [facility], [place], [address], 07/26/2023 17:15:06 07/20/19 24 07/26/2023 PATHO LOGY REPOR T . Commen t CPT . 64073 1 Not Available [facility] ([facility]) [address] [facility], [place], [address], 07/26/2023 17:15:06 07/20/19 24 07/21/2023 SLIDE REVIE W slide review Commen t Plate let Morph ology Comme nt Fawn l N RBC Morph ology Comme nt ABNOR MAL FAWN L A Hypoc hroma tima OCCAS IONAL NOT ESTB. N Ovalo cytes OCCAS IONAL NOT ESTB. N Not Available [facility] Department [address] [place], [address], 07/21/2023 03:37:20 07/20/19 24 07/20/2023 HbA1c (hemo globi n A1c), blood HbA1c 6.2 Not Available In-Office Order Internal Use Only DO Not Attach Compendium DO Not Attach Compendium, Do Not Delete/merge, [id number] 07/20/2023 13:02:29 07/26/19 24 07/30/2023 PATHO LOGY REPOR T . Commen t Mater ial submi tted: . neck - LEFT NECK. Modif iers: left Not Available [facility] ([facility]) [address] [facility], [place], [address], 07/30/2023 12:13:26 07/26/1907/30/2023 PATHO LOGY REPOR T . Commshraddha t Clini sean provi ded ICD-1 0: L91.8 Not Available [facility] ([facility]) [address] [facility], [place], [address], 07/30/2023 12:13:26 07/26/1907/30/2023 PATHO LOGY REPOR T . Commshraddha t Diagn osis: SEBAC EOUS GLAND HYPER PLASI A; IRRIT ATED FIBRO EPITH ELIAL POLYP (FRAG MENTS ). TMZ 07/30 1138 Local Not Available [facility] ([facility]) [address] [facility], [place], [address], 07/30/2023 12:13:26 07/26/1907/30/2023 PATHO LOGY REPOR T . Commen t Elect veronica no miko d: . Tomi MD, Esperanza topat holog ist Not Available [facility] ([facility]) [address] [facility], [place], [address], 07/30/2023 12:13:26 07/26/19 24 07/30/2023 PATHO LOGY REPOR T . Commen t Gross descr iptio n: . RECEI MAHENDRA IN [facility] [place] [facility]EL ED WITH THE PATIE NTS NAME AND DATE OF , LABEL ED ON THE REQUI SITIO N LEFT KNEE ARE MULTI PLE BROWN SKIN TAGS RANGI NG IN SIZE FROM 0.1 TO 0.6 CM AND MEASU RING 1.0 X 1.0 X 0.4 CM IN AGGRE GATE. SURGI CEE BARB N ON ALL FRAGM ENTS ARE INKED BLUE. SPECI MEN ENTIR HIRAL SUBMI TTED DICTA DAMASO. CASSE TTE A1 AND A2 - SMALL ER SKIN TAGS; CASSE TTE A3 - THE TWO LARGE ST SKIN TAGS BISEC DAMASO. MJU/B XS 07/27 1045 Local Not Available [facility] ([facility]) [address] [facility], [place], [address], 07/30/2023 12:13:26 07/26/19 24 07/30/2023 PATHO LOGY REPOR T . Silvina t Patho logis t provi ded ICD-1 0: L73.8 , L91.8 Not Available [facility] ([facility]) [address] [facility], [place], [address], 07/30/2023 12:13:26 07/26/19 24 07/30/2023 PATHO LOGY REPOR T . Commshraddha t CPT . 78793 1 Not Available [facility] ([facility]) [address] [facility], [place], [address], 07/30/2023 12:13:26 05/01/20 24 05/01/2024 HbA1c (hemo globi n A1c), blood HbA1c 6.2% Not Available In-Office Order Internal Use Only DO Not Attach Compendium DO Not Attach Compendium, Do Not Delete/merge, [id number] 05/01/2024 16:49:51 08/02/19 24 07/13/2023 MAMMO , rosette alcaraz, bilat lelol No observ ation record ed. [id number] [place] [address] [address], [place], [address], 08/02/2023 13:24:43 05/20/20 24 05/20/2024 XR, lumbo sacra l spine , 2 or 3 view No observ ation record ed. [facility] [address] [facility], [place], [address], 05/22/2024 00:00:56 Result Notes None recorded. Problems Name Problem SNOMED Code Status Onset Date Resolution Date Notes Provider Name and Address Organization Details Recorded Time Obesity 026206620 Completed 201608/21/2017 Jovana Thomas PA-C Attn: Accounting ,[address] [place], [address] , [facility] 8 11:07:15 Tobacco dependence syndrome 85460645 Active 2016 RALPH KEE Attn: Accounting ,[address] [place], [address] , [facility] 2 10:11:11 Subcutaneo us nodule 55599266 Active 2016 Jovana Thomas PA-C Attn: Accounting ,[address] [facility], [place], [address] , [facility] 7 11:03:54 Tenderness of thyroid 382260612 Active 2016 Jovana Thomas PA-C Attn: Accounting ,[address] [place], [address] , [facility] 7 11:04:10 Impaired dentition 666981084 Active 2016 Jovana Thomas PA-C Attn: Accounting ,[address] [place], [address] , [place] [facility] 7 11:04:18 Uncontroll ed type 2 diabetes mellitus 156373620 Active 2016 RALPH KEE Attn: Accounting ,[address] [place], [address] , [place] [facility] 2 10:11:09 Hypertrigl yceridemia 598880325 Active 2016 Jovana Thomas PA-C Attn: Accounting ,[address] [place], [address] , [place] [facility] 7 15:00:55 Body mass index 40+ - severely obese 155048654 Active 2017 RALPH KEE Attn: Accounting ,[address] [place], [address] , [place] [facility] 2 10:11:07 Loss of hair 893999765 Active 2017 Jovana Thomas PA-C Attn: Accounting ,[address] [place], [address] , [place] [facility] 8 16:09:00 Vitamin D deficiency 30103133 Active 2017 RALPH KEE Attn: Accounting ,[address] [place], [address] , [place] [facility] 2 10:38:58 Neuropathy 385760960 Active 2023 RALPH KEE Attn: Accounting ,[address] [place], [address] , [place] [facility] 4 16:59:10 Iron deficiency without anemia 587869746 Active 2023 RALPH KEE Attn: Accounting ,[address] [place], [address] , [place] [facility] 4 11:11:06 Problem Notes None recorded. Procedures Surgical History Date Name Laterality Status Provider Name and Address Organization Details Recorded Time 07/26/19 24 Skin Tag Removal completed RALPH KEE Attn: Accounting,[address] [facility], [place], [address], [place] [facility] 07/26/2023 16:13:26 06/11/19 14 Tubal Ligation completed Karla Skinner [place] [facility] 12/02/2019 15:07:29 Appendectomy completed Mile Pierce MA [facility] 05/15/2017 10:25:33 Caesarean Section completed Mile Pierce [facility] 05/15/2017 10:25:40 Tonsillectomy completed Mile Pierce [facility] 05/15/2017 10:25:57 Eardrum revision completed Mile Pierce [place] [facility] 05/15/2017 10:26:29 Cholecystectomy completed Mile Pierce [place] [facility] 05/15/2017 10:26:34 Imaging Results Imaging Date Name Status LastModified by Organiz ation Details LastModified Time 07/13/2023 MAMMO, screening, bilateral completed [address] [facility] [address], [place], [address], 08/02/2023 13:24:43 05/20/2024 XR, lumbosacral spine, 2 or 3 view completed [facility] [address] [place], [address], 05/22/2024 00:00:56 Procedure Notes None recorded. Medical Equipment None Reported. Allergies Allergen ID Allergen Name Allergen Category Reaction Reaction Severity Criticality Documentation Date Start Date Code Code System Note Provider Name and Address Organization Details Recorded Time [id number] dextromet horphan medicatio n anaphylax is Not available Not available 05/15/2017 3289 RxNorm Not Available Not Available Not Available Medications Name Sig Start Date Stop Date Status Note LastModified by Organization Details LastModified Time cyclobenza bg 10 mg tablet TAKE 1 TABLET BY MOUTH TWICE A DAY NEEDED FOR MUSCLE SPASM FOR 30 DAYS active Not Available Not Available No t Available amoxicilli n 500 mg capsule 04/25 completed Not Available Not Available Not Available medroxypro gesterone 10 mg tablet active Not Available Not Available Not Available prednisone 10 mg tablet Take 2 tablets every day by oral route for 5 days. 03/21 completed Not Available Not Available Not Available loperamide 2 mg capsule 12/01 completed Not Available Not Available Not Available azithromyc in 250 mg tablet TK 2 TS PO ON DAY 1, THEN TK 1 T PO D FOR 4 DAYS 11/14 completed Not Available Not Available Not Available ibuprofen 800 mg tablet TAKE 1 TABLET BY MOUTH THREE TIMES DAILY WITH MEALS NEEDED active Not Available Not Available No t Available fluconazol e 150 mg tablet TAKE 1 TABLET TODAY AND THEN TAKE ANOTHER TABLET IN 3 DAYS 11/14 completed Not Available Not Available Not Available hydrocodon e 5 mg-acetami nophen 325 mg tablet TAKE 1 TABLET BY MOUTH EVERY 6 HOURS NEEDED 05/10 completed Not Available Not Available Not Available metronidaz ole 0.75 % (37.5 mg/5 gram) vaginal gel 07/10 completed Not Available Not Available Not Available prednisone 20 mg tablet 09/03 completed Not Available Not Available Not Available sertraline 100 mg tablet TAKE ONE TABLET BY MOUTH DAILY DIRECTED 2024 active Not Available Not Available Not Avai lable triamcinol one acetonide 0.5 % topical ointment APPLY TOPICALL Y TO THE AFFECTED AREA TWICE DAILY 05/04 completed Not Available Not Available Not Available sulfametho xazole 800 mg-trimeth oprim 160 mg tablet TAKE 1 TABLET BY MOUTH TWICE DAILY 04/18 completed Not Available Not Available Not Available aspirin 81 mg tablet,del ayed release TAKE ONE TABLET BY MOUTH IN THE MORNING active Not Available Not Available No t Available doxycyclin e monohydrat e 100 mg tablet TAKE 1 TABLET BY MOUTH TWICE DAILY 04/18 completed Not Available Not Available Not Available triamcinol one acetonide 0.1 % topical cream APPLY A THIN LAYER TO THE AFFECTED AREA(S) BY TOPICAL ROUTE 2 TIMES PER DAY 09/03 completed Not Available Not Available Not Available glimepirid e 2 mg tablet Take 1 tablet every day by oral route. 09/03 completed Not Available Not Available Not Available ondansetro n 8 mg disintegra ting tablet 09/03 completed Not Available Not Available Not Available pantoprazo le 20 mg tablet,del ayed release TAKE ONE TABLET BY MOUTH IN THE MORNING 2023 active Not Available Not Available Not Avai lable cephalexin 500 mg capsule 04/25 completed Not Available Not Available Not Available simvastati n 20 mg tablet TAKE 1 TABLET BY MOUTH EVERY DAY active Not Available Not Available No t Available metformin 1,000 mg tablet TAKE ONE TABLET BY MOUTH TWICE A DAY active Not Available Not Available No t Available diclofenac 0.1 % eye drops 02/13 completed Not Available Not Available Not Available triamcinol one acetonide 0.1 % topical ointment APPLY A THIN LAYER TO THE AFFECTED AREA(S) BY TOPICAL ROUTE 2 TIMES PER DAY FOR 14 DAYS active Not Available Not Available No t Available progestero ne micronized 200 mg capsule TAKE 2 CAPSULES BY MOUTH EVERY DAY ON DAYS 1 TO 12 05/04 completed Not Available Not Available Not Available gabapentin 300 mg capsule Take 1 capsule 3 times a day by oral route as needed for 30 days. active Not Available Not Available No t Available ibuprofen 600 mg tablet 09/03 completed Not Available Not Available Not Available albuterol sulfate HFA 90 mcg/actuat ion aerosol inhaler Inhale 2 puffs every 4 hours by inhalati on route as needed. 03/02 completed Not Available Not Available Not Available Vitamin D2 1,250 mcg (50,000 unit) capsule TAKE 1 CAPSULE BY MOUTH EVERY WEEK 2022 active Not Available Not Available Not Avai lable fluticason e propionate 50 mcg/actuat ion nasal spray,susp ension SHAKE LIQUID AND USE 1 SPRAY IN EACH NOSTRIL EVERY DAY FOR 30 DAYS active Not Available Not Available No t Available sertraline 50 mg tablet TAKE 1 TABLET BY MOUTH DAILY 04/18 completed Not Available Not Available Not Available glipizide 5 mg tablet TAKE 1 TABLET BY MOUTH TWICE A DAY DIRECTED 05/10 completed Not Available Not Available Not Available progestero ne micronized 100 mg capsule TAKE 1 CAPSULE BY MOUTH DAILY ON DAYS 1 TO 12 OF THE MONTH 04/12 completed Not Available Not Available Not Available amoxicilli n 875 mg-potassi um clavulanat e 125 mg tablet TAKE 1 TABLET BY MOUTH EVERY 12 HOURS FOR 10 DAYS 11/29 completed Not Available Not Available Not Available Alcohol Prep Pads USE UP TO 5 PADS DAILY TO CHECK BLOOD SUGAR ONE TIME A DAY FOR TYPE 2 DIABETES MELLITUS NOT TREATED WITH INSULIN COMPLICA DAMASO BY HYPERLIP IDEMIA active Not Available Not Available No t Available Januvia 25 mg tablet TAKE ONE TABLET BY MOUTH IN THE MORNING active Not Available Not Available No t Available FeroSul 325 mg (65 mg iron) tablet TAKE ONE TABLET BY MOUTH EVERY OTHER DAY BEFORE MEALS 2024 active Not Available Not Available Not Avai lable OneTouch Verio test strips USE TO CHECK BLOOD SUGAR TWICE A DAY active Not Available Not Available No t Available Easy Touch Lancing Device USE DIRECTED 2017 active Not Available Not Available Not Avai lable Jardiance 10 mg tablet TAKE ONE TABLET BY MOUTH DAILY PT NEEDS APPOINTM ENT 03/21 completed Not Available Not Available Not Available OneTouch Verio Meter USE DIRECTED active Not Available Not Available No t Available Ozempic 0.25 mg or 0.5 mg (2 mg/1.5 mL) subcutaneo us pen injector Inject 0.25 mL by subcutan eous route. 07/27 completed nausea Not Available Not Available Not Available OneTouch Delica Plus Lancet 33 gauge USE TO TEST BLOOD SUGAR ONCE DAILY active Not Available Not Available No t Available OneTouch Delica Plus Lancet 30 gauge CHECK SUGAR TWO TIMES DAILY active Not Available Not Available No t Available ID NOW COVID-19 Test Kit TEST DIRECTED TODAY 11/14 completed Not Available Not Available Not Available Flucelvax Quad (PF) 60 mcg (15 mcg x 4)/0.5 mL IM syringe PHARMACI ST ADMINIST ERED IMMUNIZA TION ADMINIST ERED AT TIME OF DISPENSI NG 03/21 completed Not Available Not Available Not Available Vitals Date Recorded Body height Provider Name an d Address Organization Details Last Updated DateTime 11/21/2022 160.02 cm SAPNA Rodriguez [facility] 11/22/19 23 14:25:17 Date Recorded Body mass index (BMI) Body weight Provider Name and Address Organization Details Last Updated DateTime 11/21/2022 43.5 kg/m2 578508.23 g SAPNA Rodriguez [facility] 11/21/2022 14:27:26 Date Recorded Respiratory rate Provider Name a nd Address Organization Details Last Updated DateTime 11/21/2022 16 /min Ann Sesay [facility] 11/22/19 14:27:30 Date Recorded Body temperature Provider Name a nd Address Organization Details Last Updated DateTime 11/21/2022 98.7 [degF] Ann Sesay [facility] 023 14:27:33 Date Recorded Oxygen saturation Oxygen saturation in Arterial blood by Pulse oximetry Provider Name and Address Organization Details Last Updated DateTime 11/21/2022 98 % 98 % Ann Sesay [facility] 11/21/2022 14:28:49 Date Recorded Heart rate Provider Name an d Address Organization Details Last Updated DateTime 11/21/2022 79 /min Ann Sesay [employer] [facility] 11/22/19 14:28:51 Date Recorded Body height Provider Name an d Address Organization Details Last Updated DateTime 04/18/2023 160.02 cm Minna Sparks MA [facility] 11:19:53 Date Recorded Body mass index (BMI) Body weight Provider Name and Address Organization Details Last Updated DateTime 04/18/2023 41.7 kg/m2 947558.31 g Minna Sparks MA [facility] 04/18/2023 11:20:07 Date Recorded Oxygen saturation Oxygen saturation in Arterial blood by Pulse oximetry Provider Name and Address Organization Details Last Updated DateTime 04/18/2023 96 % 96 % Minna Sparks MA [facility] 04/18/2023 11:20:09 Date Recorded Heart rate Provider Name an d Address Organization Details Last Updated DateTime 04/18/2023 80 /min Minna Sparks MA [facility] 3 11:20:11 Date Recorded Respiratory rate Provider Name a nd Address Organization Details Last Updated DateTime 04/18/2023 18 /min Minna Sparks MA [facility] 3 11:21:34 Date Recorded Body height Provider Name an d Address Organization Details Last Updated DateTime 07/20/2023 160.02 cm Ann Khoury MA [facility] 12:33:27 Date Recorded Body mass index (BMI) Body weight Provider Name and Address Organization Details Last Updated DateTime 07/20/2023 40.3 kg/m2 502797.87 regis Ann Khoury MA [facility] 07/20/2023 12:42:17 Date Recorded Oxygen saturation Oxygen saturation in Arterial blood by Pulse oximetry Provider Name and Address Organization Details Last Updated DateTime 07/20/2023 98 % 98 % Ann Khoury MA [facility] 07/20/2023 12:42:18 Date Recorded Heart rate Respiratory rate Provider N gonzález and Address Organization Details Last Updated DateTime 07/20/2023 76 /min 16 /min Ann Khoury MA [facility] 07/20/2023 12:42:22 Date Recorded Body temperature Provider Name a nd Address Organization Details Last Updated DateTime 07/20/2023 98.2 [degF] Ann Khoury MA [facility] 07/20/19 24 12:42:25 Date Recorded Body height Provider Name an d Address Organization Details Last Updated DateTime 07/26/2023 160.02 cm Minna Sparks MA [facility] 15:41:23 Date Recorded Body mass index (BMI) Body weight Provider Name and Address Organization Details Last Updated DateTime 07/26/2023 40.7 kg/m2 505637.25 g Minna Sparks MA [facility] 07/26/2023 15:41:32 Date Recorded Oxygen saturation Oxygen saturation in Arterial blood by Pulse oximetry Provider Name and Address Organization Details Last Updated DateTime 07/26/2023 98 % 98 % Minna Sparks MA [facility] 07/26/2023 15:41:34 Date Recorded Heart rate Provider Name an d Address Organization Details Last Updated DateTime 07/26/2023 75 /min Minna Sparks MA [facility] 15:41:38 Date Recorded Respiratory rate Provider Name a nd Address Organization Details Last Updated DateTime 07/26/2023 16 /min Minna Sparks MA [facility] 15:41:40 Date Recorded Body height Provider Name an d Address Organization Details Last Updated DateTime 05/01/2024 160.02 cm Minna Sparks MA [facility] 16:47:10 Date Recorded Body mass index (BMI) Body weight Provider Name and Address Organization Details Last Updated DateTime 05/01/2024 42 kg/m2 141853.39 g Minna Sparks MA [facility] 1 07/01/2023 16:47:24 Date Recorded Oxygen saturation Oxygen saturation in Arterial blood by Pulse oximetry Provider Name and Address Organization Details Last Updated DateTime 05/01/2024 96 % 96 % Minna Sparks MA [facility] 05/01/2024 16:47:26 Date Recorded Heart rate Provider Name an d Address Organization Details Last Updated DateTime 05/01/2024 85 /min Minna Sparks MA [facility] 16:47:31 Date Recorded Respiratory rate Provider Name a nd Address Organization Details Last Updated DateTime 05/01/2024 16 /min Minna Sparks MA [facility] 16:47:33 Date Recorded Systolic blood pressure Diastolic blood pressure Provider Name and Address Organization Details Last Updated DateTime 11/21/2022 118 mm[Hg] 76 mm[Hg] Ann Sesay CMA [facility] 11/21/2022 14:28:57 Date Recorded Systolic blood pressure Diastolic blood pressure Provider Name and Address Organization Details Last Updated DateTime 04/18/2023 128 mm[Hg] 84 mm[Hg] Minna Sparks MA [facility] 04/18/2023 11:21:38 Date Recorded Systolic blood pressure Diastolic blood pressure Provider Name and Address Organization Details Last Updated DateTime 07/20/2023 123 mm[Hg] 73 mm[Hg] Ann Khoury MA [facility] 07/20/2023 12:42:29 Date Recorded Systolic blood pressure Diastolic blood pressure Provider Name and Address Organization Details Last Updated DateTime 07/26/2023 119 mm[Hg] 75 mm[Hg] Minna Sparks MA [facility] 07/26/2023 15:41:29 Date Recorded Systolic blood pressure Diastolic blood pressure Provider Name and Address Organization Details Last Updated DateTime 05/01/2024 141 mm[Hg] 83 mm[Hg] Minna Sparks MA [facility] 05/01/2024 16:47:21 Social History Question Answer Notes LastModified by Organizat ion Details LastModified Time Tobacco Smoking Status Current Every Day Smoker Mile Pierce MA [facility], [facility] 05/15/2017 10:29:32 Do You Have An Advance Directive? No Information not available 07/23/2020 What Is Your Level Of Alcohol Consumption? None [email or web address] Information not available 11/29/2020 Are You Blind Or Do You Have Difficulty Seeing? No Information not available 07/23/2020 What Is Your Level Of Caffeine Consumption? Heavy Information not available 05/15/2017 How Much Tobacco Do You Chew? None Information not available 05/15/2017 In The 14 Days Before Symptom Onset, Have You Had Close Contact With A Laboratory-confi rmed COVID-19 While That Case Was Ill? No Information not available 07/23/2020 In The 14 Days Before Symptom Onset, Have You Had Close Contact With A Person Who Is Under Investigation For COVID-19 While That Person Was Ill? No Information not available 07/23/2020 Have You Been To An Area Known To Be High Risk For COVID-19? No Information not available 07/23/2020 Are You Currently Employed? No Information not available 07/23/2020 Are You Deaf Or Do You Have Serious Difficulty Hearing? No Information not available 07/23/2020 What Type Of Diet Are You Following? DIABETIC Information not available 07/23/2020 Which Illicit Or Recreational Drugs Have You Used? None Information not available 05/15/2017 Do You Or Have You Ever Used E-cigarettes Or Vape? Former User Of Electronic Cigarettes [email or web address] Information not available 01/27/2019 Are There Any Guns Present In Your Home? No Information not available 07/23/2020 Advanced Directive No Information not available 07/23/2020 Alcohol Intake None Informatio n not available 07/23/2020 Caffeine Intake Moderate Informati on not available 07/23/2020 Chewing Tobacco None Informati on not available 07/23/2020 Exercise Level Occasional Informatio n not available 07/23/2020 Lives Alone Or With Others With Others Information not available 07/23/2020 Marital Status Informatio n not available 07/23/2020 Single Or Multi-level Home/work Single Level Home Information not available 07/23/2020 Tobacco Smoking Status Current Every Day Smoker Information not available 07/23/2020 What Was The Date Of Your Most Recent Tobacco Screening? 05/01/2024 [email or web address] Information not available 05/01/2024 What Is Your Relationship Status? Information not available 07/23/2020 Do You Use Your Seat Belt Or Car Seat Routinely? Yes Information not available 07/23/2020 Are You Sexually Active? Yes Information not available 07/23/2020 Do You Have Smoke And Carbon Monoxide Detectors In Your Home? Yes Information not available 07/23/2020 Are You Passively Exposed To Smoke? Yes Information not available 07/23/2020 Do You Or Have You Ever Used Smokeless Tobacco? Never Used Smokeless Tobacco [email or web address] Information not available 01/27/2019 How Much Tobacco Do You Smoke? 0.5 PPD 1PPD- 1 1/2 PPD [email or web address] Information not available 08/23/2021 Do You Feel Stressed (tense, Restless, Nervous, Or Anxious, Or Unable To Sleep At Night)? [id number] Information not available 07/23/2020 Do You Use Any Illicit Or Recreational Drugs? No Information not available 07/23/2020 Do You Use Sunscreen Routinely? Yes Information not available 07/23/2020 Has Tobacco Cessation Counseling Been Provided? Yes Information not available 07/23/2020 On What Date Was Tobacco Cessation Counseling Provided? 05/01/2024 [email or web address] Information not available 05/01/2024 How Many Years Have You Smoked Tobacco? 25 [email or web address] Information not available 01/27/2019 Do You Or Have You Ever Used Any Other Forms Of Tobacco Or Nicotine? Yes Information not available 07/23/2020 Sex: Unknown Functional Status Question Answer Note LastModified by Organizat ion Details LastModified Time Are you able to care for yourself? Yes Information not available 07/23/2020 What is your exercise level? Occasional Information not available 05/15/2017 Mental Status None recorded. Family History Relationship Description Onset Age of this Age Resolved Age Notes LastModified by Organization Details LastModified Time Father Alcohol abuse Not available 2016 10:30:13 Father Heart disease Not available 2016 10:30:45 Father Hypertensive disorder Not available 2016 10:30:58 Mother Depressive disorder Not available 2016 10:30:29 Mother Osteoporosis Not avai lable 05/15/2017 10:31:09 Sister Depressive disorder Not available 2016 10:30:29 Sister Disorder of thyroid gland Not available 2016 10:30:38 Medical History Condition Response Coronary Artery Disease N Other N Atrial Fibrillation N High Blood Pressure Y Thyroid Problems N Kidney or Bladder Problems N GI Problems N Depression N COPD N Blood Clots N Skin Problems Y Eating Disorder N Anemia N Heart Attack (SD) N Anxiety Disorder Y Diabetes Y Muscle, Joint, or Bone Problems Y Seizures/Epilepsy N Acid Reflux (GERD) N Cancer N Stroke N Asthma N Allergies N ADHD N Substance Abuse N High Cholesterol N Hepatitis N Liver Disease N Schizophrenia N Headaches N Heart Failure N Osteoporosis N Gynecological History Statement/Question Response Date of Last Mammogram Date of LMP 04/11/2023 Menses Monthly Y Date of Last Pap Smear Duration of Flow (days) 8 Current Control Method Tubal Ligat ion Obstetrics History GPAL:G 1 P 0 2 0 2 Type Value Multiple Births 2 Full Term 0 Induced 0 Spontaneous 0 Premature 2 Living 2 Ectopics 0 Total 1 Immunizations Vaccine Type Date Status Note Provider Nam e and Address Organization Details Recorded Time Tdap 7 completed Not Available [facility] 06/28/2019 02:34:00 Influenza, split virus, quadrivalent, PF 8 completed Not Available [facility] 06/28/2019 02:46:10 Influenza, split virus, quadrivalent, PF 9 completed Not Available [facility] 06/28/2019 02:38:47 Pneumococcal conjugate PCV20, polysaccharide [id number] conjugate, adjuvant, PF 2 completed RALPH KEE Attn: [address] , [place], [address], [facility] 03/21/2022 13:14:23 Influenza, split virus, quadrivalent, preservative 3 completed RALPH KEE Attn: [address] , [place], [address], [facility] 04/19/2023 09:19:48 Past Encounters Encounter ID Performer Location Encounter Start Date Encounter Closed Date Diagnosis/Indication Diagnosis SNOMED-CT Code Diagnosis ICD10 Code Diagnosis Note [id number] [facility] (Adult Med) [address] [place] [address] 05/15/2017 10:09:27 05/15/2017 11:07:22 Adult health examination 348391001 Z00.01 Active or passive immunization 226914018 Z23 Obesity 589208532 E66.9 Advised 30 minutes of exercise 5 days/week Advised to not drink her calories Advised 3 balanced meals/day with plenty of fruits and vegetables Tobacco de pendence syndrome 12919269 F17.200 Advsied to quit Increased thirst 2124236 03 R63.1 Subcutaneous nodule 9532 5000 R22.9 Will refer to general surgery at this time d/t them being painful - advised patient that they are likely cysts Tenderness of thyroid 30 4723194 M54.2 Will begin with thyroid USExam limited d/t body habitus Impaired dentition 75931 4008 K03.9 Advsied to schedule an appointmen t with a dentist [id number] [facility] (Adult Med) [address] [place] [address] 05/29/2017 10:47:11 05/29/2017 12:15:30 Uncontrolled type 2 diabetes mellitus 330007747 E11.65 new dx: 9.3 on 05/25/17t this time will initiate metformin 1000mg BID and glimpeirid e 2mg qAMAdvised patient that the metformin can cause diarrheaAd vised to check FBS qAM and record on sheet with a goal of 100-120Adv ised to check occassiona lly 2 hours post prandial with a goal of <200 Advised if sugars are <70 or >300 to contact clinic Will refer to diabetic eye exam at this timeWIll refer to nutritioni st at this time Numerous handouts concerning DM supplied to patient Advised she really needs to stop drinking soda at this time (drink 20-80oz/da y) RTC 6-8 weeks for f/u with blood sugar log Tobacco de pendence syndrome 85414091 F17.200 Advised to quit Hypertriglyceridemia 302 033545 E78.2 WIll address at next visit Obesity 708886313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
== END 2024-07-02 09:50 | disposition home or self-care (01) ==
PROVIDERS: PCP Physician Assistant; Visit Provider Physician Assistant
DX: R20.2 Paresthesia of skin (principal); G56.03 Carpal tunnel syndrome, bilateral upper limbs; G56.22 Lesion of ulnar nerve, left upper limb
CPT/HCPCS: 95886; 95911